=== PATIENT | female | born 1930 | race Caucasian/White ===

== ENCOUNTER 2017-12-25 19:48 | Emergency (ER) | payer MEDICARE ==
--- NOTE | 2017-12-25 20:33 | EDM.PDOC ---
ED HPI GENERAL MEDICAL PROBLEM - General Chief Complaint: Fever Stated Complaint: FEVER,RESPIRATORY Time Seen by Provider: 12/25/17 20:20 Source of Information: Reports: Patient, Family, Old Records, RN History Limitations: Reports: Other (dementia) - History of Present Illness INITIAL COMMENTS - FREE TEXT/NARRATIVE: 87 yo female with dementia was brought in for cough and fever. She has a low oximeter reading, but denies SOB. She also denies dizziness with standing. Her cough is non-productive. She is not able to tell me if she has had pneumonia in the past. No other obvious sources for her fever. Had acetaminophen 3 hrs ago. Onset: Gradual Onset Date: 12/22/17 Duration: Day(s):, Getting Worse Location: Reports: Chest Quality: Reports: Other (no pain) Severity: Moderate Improves with: Reports: None Worsens with: Reports: Other (time) Context: Reports: Other (assisted living resident with dementia) Associated Symptoms: Reports: Cough, Fever/Chills. 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) - Related Data Allergies Allergy/AdvReac Type Severity Reaction Status Date / Time No Known Allergies Allergy Verified 12/25/17 20:09 Home Meds: Home Meds Acetaminophen [Mapap] 2 tab PO Q4H PRN 12/25/17 [History] Cholecalciferol (Vitamin D3) [Vitamin D3] 1 tab PO DAILY 12/25/17 [History] Levothyroxine [Synthroid] 1 tab PO DAILY 12/25/17 [History] Multivitamin [Multivitamins] 1 cap PO DAILY 12/25/17 [History] Omeprazole 1 tab PO DAILY 12/25/17 [History] Past Medical History HEENT History: Reports: Impaired Vision 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: 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 History: Reports: Fracture Psychiatric History: Reports: Dementia Endocrine/Metabolic History: Reports: Hypothyroidism - Infectious Disease History Infectious Disease History: Reports: Chicken Pox, Influenza, Measles, Mumps - Past Surgical History GI Surgical History: Reports: Appendectomy 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 Surgical History: Reports: Other (See Below) Other 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 Surgeries/Procedures:: surgical repair of fx hip Social & Family History - Tobacco Use Smoking Status *Q: Never Smoker Second Hand Smoke Exposure: No - Alcohol Use Days Per Week of Alcohol Use: 1 Number of Drinks Per Day: 2 Total Drinks Per Week: 2 - Recreational Drug Use Recreational Drug Use: No ED ROS GENERAL - Review of Systems Review Of Systems: See Below Constitutional: Reports: Fever, Chills HEENT: Reports: No Symptoms Respiratory: Reports: Cough. Denies: Shortness of Breath, Wheezing, Sputum, Hemoptysis Cardiovascular: Reports: No Symptoms GI/Abdominal: Reports: No Symptoms : Reports: No Symptoms 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: Reports: No Symptoms Skin: Reports: No Symptoms Neurological: Reports: No Symptoms ED EXAM, GENERAL - Physical Exam Exam: See Below Exam Limited By: No Limitations General Appearance: Alert, WD/WN, No Apparent Distress, Other (Pleasant, mildly confused) Eye Exam: Bilateral Eye: Normal Inspection Ears: Normal External Exam, Normal Canal, Hearing Grossly Normal, Normal TMs Ear Exam: Bilateral Ear: Auricle Normal, Canal Normal, TM normal Nose: Normal Inspection, Normal Mucosa, No Blood Throat/Mouth: Normal Inspection, Normal Lips, Normal Oropharynx, Normal Voice, No Airway Compromise Head: Atraumatic, Normocephalic Neck: Normal Inspection, Supple Respiratory/Chest: No Respiratory Distress, No Accessory Muscle Use, Rhonchi Cardiovascular: Regular Rate, Rhythm, No Edema, Tachycardia GI/Abdominal: Normal Bowel Sounds, Soft, Non-Tender, No Distention Back Exam: Normal Inspection. No: CVA Tenderness (R), CVA Tenderness (L) Extremities: Normal Inspection, Normal Range of Motion, Non-Tender, No Pedal Edema Neurological: Alert, CN II-XII Intact, No Motor/Sensory Deficits, Confused (mild , chronic). No: Slow to Respond Psychiatric: Normal Affect, Normal Mood Skin Exam: Warm, Dry, Intact, Normal Color, No Rash Lymphatic: No Adenopathy Course - Vital Signs Text/Narrative:: Feels well, wants to go home and follow up in the clinic tomorrow. Last Recorded V/S: Last Vital Signs Temp 36.1 C 12/25/17 22:09 Pulse 86 12/25/17 22:09 Resp 20 12/25/17 22:09 BP 122/59 L 12/25/17 22:09 Pulse Ox 92 L 12/25/17 22:09 - Orders/Labs/Meds Orders: Active Orders 24 hr Category Date Time Status Chest 2V [CR] Stat Exams 12/25/17 20:26 Taken CULTURE BLOOD [BC] Stat Lab 12/25/17 20:37 Received UA W/MICROSCOPIC [URIN] Stat Lab 12/25/17 23:14 Ordered Labs: Laboratory Tests 12/25/17 12/25/17 12/25/17 Range/Units 20:37 20:37 20:37 WBC 18.3 H (4.5-11.0) K/uL RBC 3.58 (3.30-5.50) M/uL Hgb 11.9 L (12.0-15.0) g/dL Hct 34.1 L (36.0-48.0) % MCV 95 (80-98) fL MCH 33 H (27-31) pg MCHC 35 (32-36) % Plt Count 327 (150-400) K/uL Sodium 136 L (140-148) mmol/L Potassium 4.0 (3.6-5.2) mmol/L Chloride 101 (100-108) mmol/L Carbon Dioxide 24 (21-32) mmol/L Anion Gap 15.0 H (5.0-14.0) mmol/L BUN 14 (7-18) mg/dL Creatinine 1.0 (0.6-1.0) mg/dL Est Cr Clr Drug Dosing 26.15 mL/min Estimated GFR (MDRD) 52 L (>60) Glucose 133 H (74-106) mg/dL Lactic Acid 1.2 (0.4-2.0) mmol/L Calcium 8.8 (8.5-10.1) mg/dL Meds: Medications Discontinued Medications Generic Name Dose Route Start Last Admin Trade Name Freq PRN Reason Stop Dose Admin Lactated Ringer's 1,000 mls @ 1,000 mls/hr 12/25/17 21:30 Ringers, Lactated IV 12/25/17 22:29 BOLUS ONE Levofloxacin/Dextrose 500 mg/ 100 mls @ 100 mls/hr 12/25/17 21:30 12/25/17 22 :10 Premix IV 12/25/17 22:29 100 mls/hr ONETIME ONE Administration Sodium Chloride 500 mls @ 1,000 mls/hr 12/25/17 22:22 12/25/17 22:15 Normal Saline IV 12/25/17 22:51 1,000 mls/hr .BOLUS ONE Administration - Radiology Interpretation Free Text/Narrative:: CXR-? post infiltrate seen on lateral. No old films for comparison. Departure - Departure Time of Disposition: 23:50 Disposition: Home, Self-Care 01 Condition: Fair Clinical Impression: Pneumonia Qualifiers: Pneumonia type: due to unspecified organism Laterality: unspecified laterality Lung location: unspecified part of lung Qualified Code(s): J18.9 - Pneumonia, unspecified organism - Discharge Information Referrals: PCP,None [Primary Care Provider] - Forms: ED Department Discharge - My Orders Last 24 Hours: My Active Orders 12/25/17 20:26 Chest 2V [CR] Stat 12/25/17 20:37 CULTURE BLOOD [BC] Stat 12/25/17 23:14 UA W/MICROSCOPIC [URIN] Stat - Assessment/Plan Last 24 Hours: My Active Orders 12/25/17 20:26 Chest 2V [CR] Stat 12/25/17 20:37 CULTURE BLOOD [BC] Stat 12/25/17 23:14 UA W/MICROSCOPIC [URIN] Stat
[2017-12-25] MEDS ORDERED: Levofloxacin/Dextrose 5%-Water 500 MG in Premix Bag 1 BAG IV ONE (21:30)
[2017-12-25] MEDS ORDERED: Lactated Ringers 1,000 ML IV ONE (21:30)
[2017-12-25 22:09] VITALS: BP 122/59
[2017-12-25] MEDS ORDERED: Sodium Chloride 0.9% 500 ML IV ONE (22:22)
--- NOTE | 2017-12-26 09:27 | CR ---
Emphysematous change. Heart size within normal limits. No pneumothorax. Streaky retrocardiac density may indicate atelectasis only. Developing infiltrate difficult to exclude. Old right midshaft clavicl e fracture.
== END 2017-12-26 00:10 | disposition home or self-care (01) ==
LOC: JP.ED 19:48
DX: J18.9 Pneumonia, unspecified organism (principal); E03.9 Hypothyroidism, unspecified; Z79.899 Other long term (current) drug therapy
CPT/HCPCS: 36415; 71046; 80048; 81001; 83605; 85027; 87040; 96365; 99284; J1956; J7040

== ENCOUNTER 2018-02-08 12:36 | Emergency (ER) | payer MEDICARE ==
[2018-02-08 12:55] VITALS: BP 120/65
--- NOTE | 2018-02-08 14:39 | CR ---
Chest 1V Frontal INDICATION: cough FINDINGS: Comparison 12/25/2017. Heart size is within normal limits. Hyperinflation. No focal infiltra te. Old healed right clavicular fracture. No significant changes since prior exam.
--- NOTE | 2018-02-08 15:07 | EDM.PDOC ---
ED HPI GENERAL MEDICAL PROBLEM - General Chief Complaint: General Stated Complaint: MEDICAL VIA NORTH Time Seen by Provider: 02/08/18 13:00 Source of Information: Reports: Patient, EMS, Long-Term Records History Limitations: Reports: No Limitations - History of Present Illness INITIAL COMMENTS - FREE TEXT/NARRATIVE: 87-year-old female who has developed a cough over the last couple of days, had a urine checked this morning because of weakness and generalized malaise, had a very brief near syncopal-like episode that worried the nurses. EMS was called and she was sent over to the emergency room, arrives stable with normal vital signs. No specific complaints other than she just doesn't have the energy she normally should. Onset: Unknown/Unsure Severity: Mild Associated Symptoms: Reports: Cough, Malaise. Denies: Fever/Chills, Nausea/ Vomiting - Related Data Allergies Allergy/AdvReac Type Severity Reaction Status Date / Time No Known Allergies Allergy Verified 02/08/18 12:56 Home Meds: Home Meds Acetaminophen [Mapap] 500 mg PO Q4H PRN 12/25/17 [History] Cholecalciferol (Vitamin D3) [Vitamin D3] 1,000 unit PO DAILY 12/25/17 [History] Levothyroxine [Synthroid] 50 mcg PO DAILY 12/25/17 [History] Multivitamin [Multivitamins] 1 cap PO DAILY 12/25/17 [History] Omeprazole 20 mg PO DAILY 12/25/17 [History] Albuterol/Ipratropium [DuoNeb 3.0-0.5 MG/3 ML] 3 ml INH Q4H PRN 02/08/18 [ History] Past Medical History HEENT History: Reports: Impaired Vision 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: 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 History: Reports: Fracture Psychiatric History: Reports: Dementia Endocrine/Metabolic History: Reports: Hypothyroidism - Infectious Disease History Infectious Disease History: Reports: Chicken Pox, Influenza, Measles, Mumps - Past Surgical History GI Surgical History: Reports: Appendectomy 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 Surgical History: Reports: Other (See Below) Other 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 Surgeries/Procedures:: surgical repair of fx hip Social & Family History - Tobacco Use Smoking Status *Q: Never Smoker - Caffeine Use Caffeine Use: Reports: Coffee - Recreational Drug Use Recreational Drug Use: No ED ROS GENERAL - Review of Systems Review Of Systems: See Below Constitutional: Reports: Malaise. Denies: Fever, Chills Respiratory: Reports: Cough. Denies: Shortness of Breath GI/Abdominal: Reports: Decreased Appetite. Denies: Nausea, Vomiting Skin: Reports: No Symptoms Neurological: Denies: Headache ED EXAM, GENERAL - Physical Exam Exam: See Below Exam Limited By: No Limitations General Appearance: Alert, No Apparent Distress Eye Exam: Bilateral Eye: EOMI (No jaundice) Respiratory/Chest: No Respiratory Distress, Lungs Clear. No: Respiratory Distress Cardiovascular: Regular Rate, Rhythm. No: Tachycardia GI/Abdominal: Soft, Non-Tender Extremities: Normal Inspection. No: Pedal Edema Neurological: Alert, Oriented Course - Vital Signs Last Recorded V/S: Last Vital Signs Temp 96.4 F 02/08/18 12:54 Pulse 81 02/08/18 12:54 Resp 14 02/08/18 12:54 BP 120/65 02/08/18 12:54 Pulse Ox 98 02/08/18 12:54 - Re-Assessments/Exams Free Text/Narrative Re-Assessment/Exam: 02/08/18 15:05 Portable chest x-ray was done which was negative for infiltrates. Patient was monitored for an hour and had no recurrence of symptoms, vitals remained stable. She was discharged back to the assisted to allow her primary providers to finish their evaluation and monitoring. Departure - Departure Time of Disposition: 15:31 Disposition: [facility] Condition: Fair Clinical Impression: Bronchitis, Near syncope - Discharge Information Instructions: Near-Syncope Referrals: PCP,None [Primary Care Provider] - Forms: ED Department Discharge Care Plan Goals: Continue your current medications, recheck if worsening such as fever or increasing shortness of breath.
== END 2018-02-08 15:30 ==
LOC: JP.ED 12:36
DX: R55 Syncope and collapse (principal); J40 Bronchitis, not specified as acute or chronic; E03.9 Hypothyroidism, unspecified; Z79.899 Other long term (current) drug therapy
CPT/HCPCS: 71045; 71045-26; 99285

== ENCOUNTER 2018-05-28 13:31 | Emergency (ER) | payer MEDICARE ==
[2018-05-28 14:13] VITALS: BP 127/70
--- NOTE | 2018-05-28 14:33 | EDM.PDOC ---
ED HPI GENERAL MEDICAL PROBLEM - General Chief Complaint: Neuro Symptoms/Deficits Stated Complaint: MEDICAL VIA NORTH Time Seen by Provider: 05/28/18 13:50 Source of Information: Reports: EMS History Limitations: Reports: Altered Mental Status, Other ( patient has severe confusion, dementia and is unable to give a history) - History of Present Illness INITIAL COMMENTS - FREE TEXT/NARRATIVE: 88-year-old female brought in by ambulance because of an episode of what sounds like emesis and syncope. She was stable in route per EMS, EKG per EMS was normal and vitals were normal and the patient herself has no complaints. Further discussion with the half-way staff revealed patient was coming back from dinner and felt poorly and then her legs became very weak and they had to lay her down on the ground. She did not have complete loss of consciousness but was very confused and just kept saying "I'm okay him okay". Vitals were stable but she had several episodes of emesis and seemed more confused and was having difficulty carrying on a conversation, so the call nurse was informed then she told them to call the ambulance. In route she was stable and communicative but confused. EKG per EMS was normal. Continued monitoring in the emergency room was normal. In reviewing her records I saw her for a similar episode 4 months ago but she was communicating more clear at that time. Onset: Unknown/Unsure Associated Symptoms: Reports: No Other Symptoms - Related Data Allergies Allergy/AdvReac Type Severity Reaction Status Date / Time No Known Allergies Allergy Verified 02/08/18 12:56 Home Meds: Home Meds Acetaminophen [Mapap] 500 mg PO Q4H PRN 12/25/17 [History] Cholecalciferol (Vitamin D3) [Vitamin D3] 1,000 unit PO DAILY 12/25/17 [History] Levothyroxine [Synthroid] 50 mcg PO DAILY 12/25/17 [History] Multivitamin [Multivitamins] 1 cap PO DAILY 12/25/17 [History] Omeprazole 20 mg PO DAILY 12/25/17 [History] Albuterol/Ipratropium [DuoNeb 3.0-0.5 MG/3 ML] 3 ml INH Q4H PRN 02/08/18 [ History] Sertraline [Zoloft] 05/28/18 [History] traZODone HCl [Trazodone HCl] 05/28/18 [History] Past Medical History HEENT History: Reports: Impaired 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 Psychiatric History: Reports: Dementia Endocrine/Metabolic History: Reports: Hypothyroidism - Infectious Disease History Infectious Disease History: Reports: Chicken Pox, Influenza, Measles, Mumps - Past Surgical History GI Surgical History: Reports: Appendectomy 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 Surgical History: Reports: Other (See Below) Other 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 Surgeries/Procedures:: surgical repair of fx hip Social & Family History - Tobacco Use Smoking Status *Q: Unknown Ever Smoked - Caffeine Use Caffeine Use: Reports: Coffee ED ROS GENERAL - Review of Systems Review Of Systems: Unable To Obtain ED EXAM, GENERAL - Physical Exam Exam: See Below Exam Limited By: No Limitations General Appearance: Alert, No Apparent Distress Eye Exam: Bilateral Eye: EOMI (Patient tracks well) Respiratory/Chest: No Respiratory Distress, Lungs Clear Cardiovascular: Regular Rate, Rhythm GI/Abdominal: Soft, Non-Tender Extremities: Other (No evidence of injury) Neurological: Alert Course - Vital Signs Last Recorded V/S: Last Vital Signs Temp 96.8 F 05/28/18 14:12 Pulse 73 05/28/18 14:12 Resp 17 05/28/18 14:12 BP 127/70 05/28/18 14:12 Pulse Ox 99 05/28/18 14:12 - Re-Assessments/Exams Free Text/Narrative Re-Assessment/Exam: 05/28/18 15:01 Patient was monitored for one hour and remained stable. She was afebrile. I discussed her situation with her primary care nursing and related to concerned that she may have had another small stroke but no workup is necessary at this time. They're going to monitor for the next 48 hours as she is a DNR and no care or further evaluation is wanted. She is completely comfortable if symptoms persist they can return for an MRI or CAT scan in 2-3 days. Departure - Departure Time of Disposition: 16:25 Disposition: DC/Tfer to Advertising Sales [facility] 63 Condition: Fair Clinical Impression: Syncope Qualifiers: Syncope type: vasovagal syncope Qualified Code(s): R55 - Syncope and collapse Nausea and vomiting Qualifiers: Vomiting type: unspecified Vomiting Intractability: non-intractable Qualified Code(s): R11.2 - Nausea with vomiting, unspecified - Discharge Information Instructions: Near-Syncope, Duyf-mo-Prep Referrals: PCP,None [Primary Care Provider] - Forms: ED Department Discharge Care Plan Goals: Continue with current medications and treatment. Recheck in 2-3 days if not improving satisfactorily.
== END 2018-05-28 15:35 ==
LOC: JP.ED 13:31
DX: R55 Syncope and collapse (principal); R11.2 Nausea with vomiting, unspecified; E03.9 Hypothyroidism, unspecified; Z79.899 Other long term (current) drug therapy
CPT/HCPCS: 99285